=== PATIENT | female | born 2000 | race Two or more races ===

== ENCOUNTER 2025-03-01 14:15 | Inpatient (IN) | payer BC ==
[~2025-03-01] VITALS: Ht 152.4 cm; Wt 3.2 kg
[~2025-03-01 14:15] MED LIST: CEFDINIR300 MG PO
[2025-03-06 14:25] VITALS: BP 115/78
[2025-03-06] MEDS ORDERED: PRENATABS RX T1 EACH PO (14:42)
[2025-03-06] MEDS ORDERED: SYNTHROID50 MCG PO (14:43)
[2025-03-06] MEDS ORDERED: MORPHINE SULFATE 4 MG/ML CARTRIDGE IV PRN (15:00)
[2025-03-06] MEDS ORDERED: MISOPROSTOL 25 MCG TABLET VAG ONE (15:00)
[2025-03-06 15:16] LABS: BASO % 0.2 % (0.1-1.2); EOS # 0.15 (0.04-0.54); EOS % 1.9 % (0.7-7.0); LYMPH # 1.63 (1.18-3.74); LYMPH % 20.2 % (19.3-53.1); MEAN PLATELET VOLUME 11.10 fl (9.4-12.4); MONO # 0.36 (0.24-0.82); MONO % 4.5 % (4.7-12.5); NEUT # 5.86 (1.56-6.13); NEUT % 72.6 % (34.0-71.1); RED CELL DISTRIBUTION WIDTH 16.1 % (11.6-14.4)
[2025-03-06 15:32] LABS: INR 0.94
[2025-03-06 15:35] VITALS: BP 119/78
[2025-03-06 16:03] LABS: ALT/SGPT 22.0 U/L (12-78); AST/SGOT 15.0 U/L (15-37); BILIRUBIN TOTAL 0.25 mg/dL (0.3-1.2); BUN CREA RATIO 12.0 (7.0-25.0); CREATININE SERUM 0.5 mg/dL (0.55-1.02); GFR 150.33; GLOBULINA 3.8 G/DL (2.4-3.5); GLUCOSE FASTING 124.0 mg/dL (65-100); OSMOLALITY SERUM 275.0 MOSM/KG (275-295)
[2025-03-06 23:32] VITALS: BP 122/72
[2025-03-07 03:55] VITALS: BP 123/76
[2025-03-07] MEDS ORDERED: OXYTOCIN 500 ML IV ONE (07:15)
[2025-03-07 07:42] VITALS: BP 120/72
[2025-03-07 10:57] VITALS: BP 131/69
[2025-03-07] MEDS ORDERED: MORPHINE SULFATE 4 MG/ML CARTRIDGE IV PRN (14:15)
[2025-03-07] MEDS ORDERED: OXYTOCIN 1,000 ML IV ONE (14:30)
[2025-03-07] MEDS ORDERED: RINGERS SOLUTION,LACTATED 1,000 ML IV SCH (14:30)
[2025-03-07 16:00] VITALS: BP 115/75
[2025-03-07] MEDS ORDERED: ERYTHROMYCIN BASE OPHT 1GM EACH TUBE OP ONE (16:15)
[2025-03-07] MEDS ORDERED: GABAPENTIN 300 MG CAPSULE PO SCH (17:00)
[2025-03-07] MEDS ORDERED: ONDANSETRON HCL 2 MG/ML VIAL IV SCH (17:00)
[2025-03-07] MEDS ORDERED: SIMETHICONE 125 MG CAPSULE PO SCH (17:00)
[2025-03-07] MEDS ORDERED: ACETAMINOPHEN 500 MG GEL..CAP PO SCH (18:00)
[2025-03-07] MEDS ORDERED: KETOROLAC TROMETHAMINE 30 MG VIAL IV SCH (18:00)
[2025-03-07 22:50] VITALS: BP 110/72
[2025-03-08 02:51] VITALS: BP 113/74
[2025-03-08 07:32] LABS: BASO % 0.3 % (0.1-1.2); EOS # 0.14 (0.04-0.54); EOS % 1.2 % (0.7-7.0); LYMPH # 2.03 (1.18-3.74); LYMPH % 17.8 % (19.3-53.1); MEAN PLATELET VOLUME 11.40 fl (9.4-12.4); MONO # 0.55 (0.24-0.82); MONO % 4.8 % (4.7-12.5); NEUT # 8.61 (1.56-6.13); NEUT % 75.5 % (34.0-71.1); RED CELL DISTRIBUTION WIDTH 16.5 % (11.6-14.4)
[2025-03-08 08:00] VITALS: BP 116/74
[2025-03-08] MEDS ORDERED: KETOROLAC TROMETHAMINE 10 MG TABLET PO SCH (08:00)
[2025-03-08] MEDS ORDERED: OxyCODONE HCL 5 MG TABLET (ROXICODONE) PO PRN (08:00)
[2025-03-08] MEDS ORDERED: DOCUSATE SODIUM 100MG CAP PO SCH (09:00)
[2025-03-08 16:36] VITALS: BP 116/79
[2025-03-09 02:18] VITALS: BP 123/74
[2025-03-09 08:00] VITALS: BP 131/76
== END 2025-03-09 13:14 | disposition home or self-care (01) | DRG 788 ==
LOC: LDR 03-05 14:15 → O/R 03-07 14:04 → OB/GYN 03-07 16:18
PROVIDERS: Obstetrics & Gynecology; Obstetrics & Gynecology Maternal & Fetal Medicine; ADMIT Obstetrics & Gynecology; ATTEND Obstetrics & Gynecology
PROC: 4A1HXCZ Monitoring of Products of Conception, Cardiac Rate, External Approach (ICD-10-PCS; 2025-03-06)
PROC: 3E0P7VZ Introduction of Hormone into Female Reproductive, Via Natural or Artificial Opening (ICD-10-PCS; 2025-03-06)
PROC: 3E033VJ Introduction of Other Hormone into Peripheral Vein, Percutaneous Approach (ICD-10-PCS; 2025-03-07)
PROC: 10D00Z1 Extraction of Products of Conception, Low, Open Approach (ICD-10-PCS; principal; 2025-03-07 13:30)
DX: O61.0 Failed medical induction of labor (principal); Z3A.40 40 weeks gestation of pregnancy; Z37.0 Single live birth

== ENCOUNTER 2025-03-05 12:51 | Outpatient (CLI) | payer BC ==
[2025-03-06] MEDS ORDERED: PRENATABS RX T1 EACH PO (14:42)
[2025-03-06] MEDS ORDERED: SYNTHROID50 MCG PO (14:43)
== END 2025-03-05 13:37 | disposition home or self-care (01) ==
LOC: NST 12:51
PROVIDERS: ATTEND Obstetrics & Gynecology
DX: Z34.83 Encounter for supervision of other normal pregnancy, third trimester (principal)

== ENCOUNTER 2025-03-09 20:03 | Inpatient (IN) | payer BC ==
[~2025-03-09] VITALS: Ht 157.5 cm; Wt 106.1 kg
[~2025-03-09 20:03] MED LIST changes: +PRENATABS RX T1 EACH PO; +SYNTHROID50 MCG PO
--- NOTE | 2025-03-09 20:24 | NUR ---
PACIENTE ALERTA Y ORIENTADA X3 REFIERE KANA TENIDO PHYLLIS CESARIA EL MIERCOLES Y DESDE EL MAGALY JENNIFER A SUFRIDO DE ESCALOFRIOS Y FIBRE EN EL HOGAR. SE RONNY S/V Y PRESENTA PULSO DE 132 POR LO QUE SE REALIZA UN EKG POR [facility]. EKG ES EVALUADO POR DR. BETANCOURT Y ZACHARIAH REFIERE UBICAR A PACIENTE EN OBSERVACION.
[2025-03-09] MEDS ORDERED: ACETAMINOPHEN 500 MG GEL..CAP PO ONE ×2 (20:45→21:10)
[2025-03-09] MEDS ORDERED: 0.9 % SODIUM CHLORIDE 1,000 ML IV SCH (20:45)
[2025-03-09] MEDS ORDERED: ONDANSETRON HCL 4 MG in 0.9 % SODIUM CHLORIDE 50 ML IV ONE (20:45)
[2025-03-09] MEDS ORDERED: 0.9 % SODIUM CHLORIDE 500 ML IV ONE (20:45)
[2025-03-09] MEDS ORDERED: FAMOtidine 10 MG/ML (4ML VIAL) IV PUSH ONE (20:45)
[2025-03-09] MEDS ORDERED: ONDANSETRON HCL 2 MG/ML VIAL ONE (21:10)
[2025-03-09] MEDS ORDERED: FAMOTIDINE/PF 20 MG/2 ML VIAL ONE (21:10)
--- NOTE | 2025-03-09 21:38 | NUR ---
SE EDUCA PACIENTE SOBRE TRATAMIENTO MEDICO EL CUAL REFIERE ENTENDER, SE REALIZA RONNY DE MUESTRAS Y SE ADMINISTRA MEDICAMENTOS GEE ORDEN MEDICA Y BAJO MEDIDAS ASEPTICAS.
[2025-03-09 21:42] LABS: BASO % 0.1 % (0.1-1.2); EOS # 0.03 (0.04-0.54); EOS % 0.2 % (0.7-7.0); LYMPH # 1.78 (1.18-3.74); LYMPH % 11.8 % (19.3-53.1); MEAN PLATELET VOLUME 11.10 fl (9.4-12.4); MONO # 0.68 (0.24-0.82); MONO % 4.5 % (4.7-12.5); NEUT # 12.46 (1.56-6.13); NEUT % 82.9 % (34.0-71.1); RED CELL DISTRIBUTION WIDTH 16.7 % (11.6-14.4)
[2025-03-09 21:46] LABS: ERYTHROCYTE SEDIMENTATION RATE 107 mm/hr (0-20)
[2025-03-09 22:04] LABS: ALT/SGPT 22.0 U/L (12-78); AST/SGOT 26.0 U/L (15-37); BILIRUBIN TOTAL 0.41 mg/dL (0.3-1.2); BUN CREA RATIO 13.0 (7.0-25.0); CREATININE SERUM 0.6 mg/dL (0.55-1.02); GFR 121.8; GLOBULINA 4.5 G/DL (2.4-3.5); GLUCOSE FASTING 103.0 mg/dL (65-100); OSMOLALITY SERUM 280.0 MOSM/KG (275-295)
[2025-03-09] MEDS ORDERED: CEFTRIAXONE SODIUM 2,000 MG in 0.9 % SODIUM CHLORIDE 100 ML IV ONE (23:30)
[2025-03-09 23:42] LABS: COVID-19 AG NEGATIVE (NEGATIVE)
[2025-03-10 00:25] LABS: URINE APPEARANCE Clear; URINE BILIRRUBIN Negative (NEGATIVE); URINE BLOOD Large; URINE COLOR Yellow; URINE GLUCOSE Negative (NEGATIVE); URINE KETONE Negative (NEGATIVE); URINE LEUKOCYTE Small; URINE NITRATE Negative; URINE PROTEIN Trace (NEGATIVE); URINE UROBILINOGEN 1.0 E.U./dl
[2025-03-10 00:28] LABS: URINE BACTERIA 313.1 uL (0.0-1933); URINE EPITHELIAL CELLS 26.9 uL (0.0-38.8); URINE RBC 48.5 uL (0.0-20.8); URINE WBC 192.3 uL (0.0-23.2)
[2025-03-10] MEDS ORDERED: CEFTRIAXONE SODIUM 2,000 MG VIAL ONE (00:41)
[2025-03-10 01:06] LABS: URINE CAST 0.14 uL (0.0-1.40)
[2025-03-10] MEDS ORDERED: ACETAMINOPHEN 500 MG GEL..CAP PO STA (01:53)
[2025-03-10] MEDS ORDERED: ACETAMINOPHEN 500 MG GEL..CAP PO SCH (01:53)
[2025-03-10] MEDS ORDERED: ACETAMINOPHEN 500 MG GEL..CAP PO ONE ×3 (02:17→16:31)
[2025-03-10 07:55] LABS: BASO % 0.2 % (0.1-1.2); EOS # 0.02 (0.04-0.54); EOS % 0.2 % (0.7-7.0); LYMPH # 2.05 (1.18-3.74); LYMPH % 16.0 % (19.3-53.1); MEAN PLATELET VOLUME 11.10 fl (9.4-12.4); MONO # 0.67 (0.24-0.82); MONO % 5.2 % (4.7-12.5); NEUT # 9.99 (1.56-6.13); NEUT % 77.7 % (34.0-71.1); RED CELL DISTRIBUTION WIDTH 16.8 % (11.6-14.4)
[2025-03-10] MEDS ORDERED: CLINDAMYCIN PHOSPHATE 900 MG in DEXTROSE 5 % IN WATER 100 ML IV SCH (13:31)
[2025-03-10] MEDS ORDERED: GENTAMICIN SULFATE/PF 10 MG/ML VIAL IV SCH (13:32)
[2025-03-10] MEDS ORDERED: FAMOTIDINE/PF 20 MG in 0.9 % SODIUM CHLORIDE 8 ML IV PUSH SCH (13:33)
[2025-03-10 16:00] VITALS: BP 134/84; O2SAT 100
[2025-03-10] MEDS ORDERED: GENTAMICIN SULFATE 40 MG/ML VIAL ONE (16:30)
[2025-03-10] MEDS ORDERED: FAMOTIDINE/PF 20 MG/2 ML VIAL ONE (16:31)
[2025-03-10] MEDS ORDERED: CLINDAMYCIN PHOSPHATE 150 MG/ML (900mg) ONE (16:31)
[2025-03-10 18:35] VITALS: BP 112/72; O2SAT 98
[2025-03-10 18:46] VITALS: BP 112/72
[2025-03-11 00:35] VITALS: BP 117/79
[2025-03-11] MEDS ORDERED: FAMOTIDINE/PF 20 MG/2 ML VIAL ONE (08:10)
[2025-03-11 10:00] VITALS: BP 118/67
[2025-03-11] MEDS ORDERED: ACETAMINOPHEN 500 MG GEL..CAP PO PRN (12:45)
[2025-03-11 16:24] VITALS: BP 119/84
[2025-03-11] MEDS ORDERED: ENOXAPARIN SODIUM 40 MG/0.4 ML SYRINGE SUBCUTANEO SCH (17:00)
[2025-03-11] MEDS ORDERED: GENTAMICIN SULFATE 40 MG/ML VIAL IV SCH (17:00)
[2025-03-12 00:12] VITALS: BP 126/80
[2025-03-12] MEDS ORDERED: FAMOTIDINE/PF 20 MG/2 ML VIAL ONE (07:49)
[2025-03-12 08:19] VITALS: BP 120/71
== END 2025-03-12 13:27 | disposition home or self-care (01) | DRG 759 ==
LOC: ER 20:03 → OB/GYN 03-10 15:42
PROVIDERS: General Practice; ADMIT Obstetrics & Gynecology Gynecology; ATTEND Obstetrics & Gynecology Gynecology
PROC: BW21YZZ Computerized Tomography (CT Scan) of Abdomen and Pelvis using Other Contrast (ICD-10-PCS; principal; 2025-03-09)
DX: N71.9 Inflammatory disease of uterus, unspecified (principal); Z98.891 History of uterine scar from previous surgery

== ENCOUNTER 2025-03-24 18:44 | Emergency (ER) | payer BC ==
[~2025-03-24] VITALS: Ht 160 cm; Wt 97.1 kg
[2025-03-24] MEDS ORDERED: FAMOTIDINE/PF 20 MG/2 ML VIAL IV ONE (19:30)
[2025-03-24] MEDS ORDERED: FAMOTIDINE/PF 20 MG/2 ML VIAL ONE (20:55)
[2025-03-24 21:31] LABS: BASO % 0.3 % (0.1-1.2); EOS # 0.23 (0.04-0.54); EOS % 1.9 % (0.7-7.0); LYMPH # 2.22 (1.18-3.74); LYMPH % 18.5 % (19.3-53.1); MEAN PLATELET VOLUME 9.90 fl (9.4-12.4); MONO # 0.38 (0.24-0.82); MONO % 3.2 % (4.7-12.5); NEUT # 9.09 (1.56-6.13); NEUT % 75.8 % (34.0-71.1); RED CELL DISTRIBUTION WIDTH 15.8 % (11.6-14.4)
[2025-03-24 22:21] LABS: ALT/SGPT 44.0 U/L (12-78); AST/SGOT 56.0 U/L (15-37); BILIRUBIN TOTAL 0.24 mg/dL (0.3-1.2); BUN CREA RATIO 17.0 (7.0-25.0); CREATININE SERUM 0.69 mg/dL (0.55-1.02); GFR 103.66; GLOBULINA 4.0 G/DL (2.4-3.5); GLUCOSE FASTING 92.0 mg/dL (65-100); OSMOLALITY SERUM 279.0 MOSM/KG (275-295)
[2025-03-24] MEDS ORDERED: PEPCID40 MG PO (23:14)
== END 2025-03-25 02:08 | disposition home or self-care (01) ==
LOC: ER 18:44
PROVIDERS: General Practice
DX: R10.13 Epigastric pain (principal)